=== PATIENT | male | born 2000 | race Caucasian/White ===

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

== ENCOUNTER 2021-01-11 12:59 | Emergency (ER) | payer OTHER ==
[~2021-01-11] VITALS: Ht 180.3 cm; Wt 87.9 kg
[2021-01-11 12:59] VITALS: BP 122/69
[~2021-01-11 12:59] MED LIST changes: +HYDR-3715 PO
--- NOTE | 2021-01-11 13:33 | REP ---
INDICATION: trauma. COMPARISON: 04/29/2017, 02/10/2017 TECHNIQUE: Four views FINDINGS: There is a Nabil screw in the scaphoid from previous ORIF. Fracture line no longer evident. This appearance unchanged there is some minor degenerative changes at the proximal pole of the scaphoid with small spur at the joint scapholunate joint not widened the other carpal bones and the joint spaces were intact. Distal radius and ulna were unchanged. There is a lucency in the distal diametaphysis of the radius with sclerotic margins, stable. Metacarpals and MCP joints intact. IMPRESSION: 1. Status post ORIF of a previous scaphoid fracture with a Nabil screw in place in appearance unchanged. Fracture line no longer evident. Some minimal degenerative changes at the proximal pole the scaphoid at the scapholunate joint. 2. Lucency in the distal radial diametaphysis and metaphysis as seen on the previous study with sclerotic margins. This is stable. 3. No other significant or acute finding. <Electronically signed by Abdoulaye Whiteside > 01/11/21 [id number]
[2021-01-11] MEDS ORDERED: ACETAMINOPHEN 500 MG TAB PO ONE (15:05)
--- NOTE | 2021-01-11 15:35 | REP ---
INDICATION: R 3rd MCP joint ttp. COMPARISON: 04/29/2017 TECHNIQUE: Four views of the right hand were obtained. FINDINGS: The compression screw in the scaphoid is again noted as is the benign-appearing lucency in the distal right radius. No acute fracture or dislocation is identified. IMPRESSION: No acute fracture is noted. <Electronically signed by Ambrosio Guerrero > 01/11/21 [id number]
--- NOTE | 2021-01-11 15:39 | REP ---
INDICATION: R wrist pain/injury, h/o scaphoid fracture/repair. COMPARISON: X-ray 01/11/2021 wrist and hand, 04/29/2017, 02/10/2017. TECHNIQUE: Axial soft tissue and bone window images with coronal and sagittal bone window reconstructions and an axial orthopedic metal reduction algorithm reformat. FINDINGS: There is a Nabil screw within the scaphoid from distal proximal. The screw is intact. Fracture is healed with no visualization of the fracture line. There is a small spur peripherally at the margin with the adjacent radial styloid. A tiny ossific density is seen adjacent to the radial styloid which is also seen on the previous studies in that same location only it is better visualized on CT. This is not an acute avulsion. Remainder of the carpal bones, their joint spaces articulating with each other and the CMC joints are unremarkable visualized portions of metacarpals intact. Lucency with sclerotic margins in the distal radial diametaphysis is unchanged from the multiple prior radiographs. There is an ulna minus variant of a few mm by CT. No abnormal widening of any of the carpal joint spaces including scapholunate. IMPRESSION: 1. Status post ORIF with Nabil screw in the scaphoid from distal to proximal with healing completed and no fracture line visible. Tiny ossific density peripheral to the scaphoid and radial styloid is seen dating back to 2018 x-ray exam but better visualized by CT, this is not acute. 2. Carpal bones their joint spaces otherwise unremarkable. There is an ulna minus variant of a few mm. 3. 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 Nothing acute. <Electronically signed by Abdoulaye Whiteside > 01/11/21 [id number]
== END 2021-01-11 17:30 | disposition home or self-care (01) ==
LOC: M ED 12:59
DX: S63.501A Unspecified sprain of right wrist, initial encounter (principal); X50.0XXA Overexertion from strenuous movement or load, initial encounter; Y92.9 Unspecified place or not applicable; Y93.9 Activity, unspecified; Y99.0 Civilian activity done for income or pay; Z87.81 Personal history of (healed) traumatic fracture